=== PATIENT | female | born 1965 | race Hispanic/Latino ===

== ENCOUNTER 2018-03-24 09:05 | Outpatient (CLI) | payer OTHER ==
--- NOTE | 2018-03-24 10:15 | MMO ---
BILATERAL SCREENING MAMMOGRAM: HISTORY: A 53-year-old female. Routine screening mammography. COMPARISON: 04/01/2013, 04/28/2013, 02/17/2014, 03/07/2016 TECHNIQUE: CC and MLO views of both breasts are submitted for interpretation. This patient's mammogram is revie wed with the assistance of computer aided detection. FINDINGS: The breasts are composed of heterogeneously dense fibroglandular tissue, which limits the sensitivity of mammography in the detection of underlying malignancy. Bilaterally, no suspicious dominant mass, architectural distortion, or suspicious calcification. Sta ble biopsy clip in the left breast. IMPRESSION: BI-RADS Category 2-Benign findings. RECOMMENDATIONS: Annual mammogram. POS: [facility]
== END 2018-03-24 09:06 | disposition home or self-care (01) ==
LOC: SCSMAMMO 09:05
PROVIDERS: ATTEND Family Medicine
DX: Z12.31 Encounter for screening mammogram for malignant neoplasm of breast (principal)
CPT/HCPCS: 77067